=== PATIENT | male | born 1950 | race Caucasian/White ===

== ENCOUNTER 2023-12-03 18:17 | Emergency (ER) | payer SELFPAY ==
[~2023-12-03] VITALS: Ht 170.2 cm; Wt 60.0 kg
[2023-12-03] MEDS: IPRATROPIUM/ALBUTEROL 0.5-3(2.5)MG/3ML NEB HHN ONE (21:45)
[2023-12-03 21:55] LABS: BASOPHILS % 0.7 % (0.0-2.0); EOSINOPHILS % 1.1 % (0.0-5.0); HEMATOCRIT. 42.7 % (42.0-52.0); HEMOGLOBIN. 14.3 g/dL (14.0-18.0); LYMPHOCYTES % 21.3 % (20.0-50.0); MEAN CORPUSCULAR HEMOGLOBIN 32.3 pg (28.0-32.0); MEAN CORPUSCULAR HGB CONC 33.5 g/dL (31.0-37.0); MEAN CORPUSCULAR VOLUME 96.3 fL (80.0-94.0); MEAN PLATELET VOLUME 9.5 fl (7.4-10.4); MONOCYTES % 5.6 % (2.0-8.0); NEUTROPHILS % 71.3 % (40.0-76.0); PLATELET 115 x1000/uL (130-400); RED BLOOD CELL COUNT 4.43 mill/uL (4.7-6.1); RED CELL DISTRIBUTION WIDTH 13.1 % (11.6-14.6)
[2023-12-03 21:58] LABS: CHLORIDE 107 mEq/L (98-107); POTASSIUM 4.4 mEq/L (3.5-5.1); SODIUM 138 mEq/L (136-145)
[2023-12-03 21:59] LABS: CALCIUM 9.7 mg/dL (8.7-10.4); CARBON DIOXIDE 24 mEq/L (21-32)
[2023-12-03 22:03] VITALS: PULSE 76; RESP 20; O2SAT 97
[2023-12-03 22:04] LABS: CREATININE 0.9 mg/dL (0.6-1.3); GLUCOSE 104 mg/dL (70-105); PARTIAL THROMBOPLASTIN TIME 27.6 sec (23.4-31.0); PROTHROMBIN TIME 10.8 sec (9.6-11.0); UREA NITROGEN BLOOD 17 mg/dL (9-23)
[2023-12-03 22:05] LABS: TROPONIN I HIGH SENSITIVITY 5 ng/L (3.0-53)
[2023-12-03 22:06] LABS: ALANINE AMINOTRANSFERASE 47 IU/L (10-49); ALBUMIN 4.5 g/dL (3.2-4.8); ASPARTATE AMINOTRANSFERASE 40 IU/L (<34); BILIRUBIN DIRECT 0.3 mg/dL (<=3.0); BILIRUBIN TOTAL 0.8 mg/dL (0.1-1.0); PROTEIN TOTAL 7.5 g/dL (6.0-8.3)
[2023-12-03] MEDS ORDERED: P20 MT (23:42)
[2023-12-03] MEDS ORDERED: ALBU6.7H15 INH (23:42)
[2023-12-03] MEDS: PREDNISONE 20MG TABLET PO ONE (23:54)
[2023-12-04 00:49] VITALS: BP 117/78; PULSE 70; RESP 20; TEMP 98
== END 2023-12-04 00:54 | disposition home or self-care (01) ==
LOC: ER 18:17
DX: J45.901 Unspecified asthma with (acute) exacerbation (principal); R06.02 Shortness of breath; I10 Essential (primary) hypertension; Z20.822 Contact with and (suspected) exposure to COVID-19
CPT/HCPCS: 80076; 80048; 83880; 85025; 85610; 85730; 84484; 36415; 71045; 94640; 93005; 99284; 87804 ×2; 87426; J7512; Z7610 ×2